=== PATIENT | female | born 1945 | race Two or more races ===

== ENCOUNTER 2023-02-23 09:22 | Emergency (ER) | payer OTHER ==
[~2023-02-23] VITALS: Ht 162.6 cm; Wt 45.4 kg
== END 2023-02-23 10:56 | disposition home or self-care (01) ==
LOC: ER 09:22
DX: Z48.02 Encounter for removal of sutures (principal)

== ENCOUNTER 2023-02-28 08:03 | Outpatient (CLI) | payer OTHER | END 2023-02-28 08:11 | disposition home or self-care (01) | LOC: TOM 08:03 | PROVIDERS: ATTEND Internal Medicine Gastroenterology | DX: R10.31 Right lower quadrant pain (principal); R10.32 Left lower quadrant pain | CPT/HCPCS: 74177; Q9965 ==

== ENCOUNTER 2024-11-24 08:09 | Outpatient (CLI) | payer OTHER | END 2024-11-24 08:14 | disposition home or self-care (01) | LOC: TOM 08:09 | PROVIDERS: ATTEND Internal Medicine Gastroenterology | DX: R10.13 Epigastric pain (principal); R10.33 Periumbilical pain | CPT/HCPCS: 74178; Q9965 ==